=== PATIENT | female | born 1970 | race Caucasian/White ===

== ENCOUNTER → 2016-12-25 | Outpatient (CLI) | payer BC ==
--- NOTE | 2016-12-25 18:27 | CARD ---
APPROVED REPORT EXAM: Two-dimensional and M-mode echocardiogram with Doppler and color Doppler. Other Information Quality : GoodHR: 64bpm Rhythm : NSR INDICATION Ascending Aorta Dilation 2D DIMENSIONS RVDd2.9 (2.9-3.5cm)Left Atrium(2D)3.4 (1.6-4.0cm) IVSd1.0 (0.7-1.1cm)Aortic Root(2D)3.1 (2.0-3.7cm) LVDd4.0 (3.9-5.9cm)LVOT Diameter2.0 (1.8-2.4cm) PWd0.9 (0.7-1.1cm)LVDs3.0 (2.5-4.0cm) FS (%) 25.8 %SV36.2 ml LVEF(%)55.0 (>50%) Aortic Valve AoV Peak Derrick.146.7cm/sAoV VTI31.3cm AO Peak GR.8.6mmHgLVOT Peak Derrick.111.8cm/s LVOT VTI 25.86cmAO Mean GR.5mmHg NOHELIA (VMAX)2.38ce0TQM (VTI)2.63cm2 Mitral Valve MV E Zzweeaqk04.6cm/sMV DECEL [id number] MV A Maystpuh08.4cm/sMV E Mean Gr.2mmHg MV OPF26qvI/A Ratio1.0 MV A Ceeknbvl670gcEMF (PHT)3.41cm2 TDI E/Lateral E'8.2E/Medial E'9.5 Pulmonary Valve PV Peak Rxrmpzcj19.2cm/sPV Peak Grad.2mmHg RVOT VTI14.7cm Tricuspid Valve TR P. Jxfntvym404ti/sRAP KRTIAJBF1hiFz TR Peak Gr.99xcNyBEWX90ftXz Pulmonary Vein S1 Amtrapco89.0cm/sD2 Odtlykak30.5cm/s PVa seonbscb068fdoa LEFT VENTRICLE The left ventricle is normal size. There is normal left ventricular wall thickness. Left ventricle sy stolic function is normal. The Ejection Fraction is 55%. There is normal LV segmental wall motion. Tr ansmitral Doppler flow pattern is Grade I-abnormal relaxation pattern. There is no ventricular septal defect visualized. AORTIC VALVE The aortic valve is mildly calcified but opens well. The aortic valve is trileaflet. Doppler and [place] r Flow revealed no significant aortic regurgitation. There is no significant aortic valvular stenosis . MITRAL VALVE The mitral valve is normal in structure. There is no evidence of mitral valve prolapse. There is no m itral valve stenosis. Doppler and Color Flow revealed trace mitral regurgitation. TRICUSPID VALVE The tricuspid valve is normal in structure. Doppler and Color Flow revealed trace tricuspid regurgita tion. There is no pulmonary hypertension. The PA pressure was estimated at 15 mmHg. PULMONIC VALVE The pulmonary valve is normal in structure and function. Doppler and Color Flow revealed no pulmonic valvular regurgitation. GREAT VESSELS The aortic root is normal in size. The ascending aorta is moderately dilated at 3.9cm. Normal pulmona ry venous flow (Doppler). The IVC is normal in size and collapses >50% with inspiration. PERICARDIAL EFFUSION There is no evidence of significant pericardial effusion. Critical Notification Critical Value: No <Conclusion> Left ventricle systolic function is normal. The Ejection Fraction is 55%. Transmitral Doppler flow pattern is Grade I-abnormal relaxation pattern. The aortic valve is mildly calcified but opens well. The aortic valve is trileaflet. Doppler and Color Flow revealed trace mitral regurgitation. Doppler and Color Flow revealed trace tricuspid regurgitation. There is no pulmonary hypertension. The PA pressure was estimated at 15 mmHg. The pulmonary valve is normal in structure and function. The ascending aorta is moderately dilated at 3.9cm. There is no evidence of significant pericardial effusion.
== END | disposition home or self-care (01) ==
LOC: ECHO 09:12
PROVIDERS: ATTEND Internal Medicine Cardiovascular Disease
DX: I37.1 Nonrheumatic pulmonary valve insufficiency (principal); I77.810 Thoracic aortic ectasia
CPT/HCPCS: 93306

== ENCOUNTER → 2017-12-17 | Outpatient (CLI) | payer BC | END | disposition home or self-care (01) | LOC: ECHO 13:09 | DX: I77.810 Thoracic aortic ectasia (principal); I37.1 Nonrheumatic pulmonary valve insufficiency; E66.9 Obesity, unspecified; R06.02 Shortness of breath; R06.00 Dyspnea, unspecified | CPT/HCPCS: 93306 ==

== ENCOUNTER 2018-02-02 23:30 | Emergency (ER) | payer BC | END 2018-02-03 00:37 | disposition home or self-care (01) | LOC: ER 23:30 | DX: S80.01XA Contusion of right knee, initial encounter (principal); I10 Essential (primary) hypertension; E78.00 Pure hypercholesterolemia, unspecified; Z90.49 Acquired absence of other specified parts of digestive tract; W01.198A Fall on same level from slipping, tripping and stumbling with subsequent striking against other object, initial encounter; Y93.89 Activity, other specified; Y92.89 Other specified places as the place of occurrence of the external cause; Y99.8 Other external cause status | CPT/HCPCS: 73562; 99284 ==

== ENCOUNTER → 2018-05-06 | Outpatient (CLI) | payer BC ==
[~2018-05-06] MED LIST: BUPIVACAINE MPF 0.5% 30 ML VIAL.; methylPREDNISolone ACETATE 40 MG/ML VIAL.
== END | disposition home or self-care (01) ==
LOC: PNCL 09:29
DX: G89.28 Other chronic postprocedural pain (principal); Z90.49 Acquired absence of other specified parts of digestive tract; R10.11 Right upper quadrant pain; I10 Essential (primary) hypertension; M19.90 Unspecified osteoarthritis, unspecified site; Z72.89 Other problems related to lifestyle; Z88.1 Allergy status to other antibiotic agents
CPT/HCPCS: 64450; J1030; J3490

== ENCOUNTER → 2018-05-15 | Outpatient (CLI) | payer BC | END | disposition home or self-care (01) | LOC: MRI 07:56 | DX: M41.86 Other forms of scoliosis, lumbar region (principal); I10 Essential (primary) hypertension; E78.00 Pure hypercholesterolemia, unspecified; E66.9 Obesity, unspecified | CPT/HCPCS: 74181 ==

== ENCOUNTER → 2018-10-16 | Outpatient (CLI) | payer BC ==
[2018-02-02 23:41] VITALS: BP 111/65
[~2018-10-16] MED LIST changes: +AMLO5TAB7 PO; +BACI1TAB3 PO; -BUPIVACAINE MPF 0.5% 30 ML VIAL.; +DICY20TA3 PO; +ESOM20CA PO; +LORA1TAB47 PO; +LOVA20TA2 PO; +METO-247 PO; +VALA500T5 PO; -methylPREDNISolone ACETATE 40 MG/ML VIAL.
--- NOTE | 2018-10-16 15:56 | CARD ---
MR#: [id number] Date of Study: 10/16/2018 Ordering Physician: FARHEEN GARCIA, Referring Physician: FARHEEN GARCIA Tech: Roxana Crawford RDCS APPROVED REPORT EXAM: Two-dimensional and M-mode echocardiogram with Doppler and color Doppler. Other Information Quality : Good INDICATION Ascending Aorta Dilatation 2D DIMENSIONS RVDd2.2 (2.9-3.5cm)Left Atrium(2D)3.0 (1.6-4.0cm) IVSd0.8 (0.7-1.1cm)Aortic Root(2D)2.8 (2.0-3.7cm) LVDd4.3 (3.9-5.9cm)LVOT Diameter2.1 (1.8-2.4cm) PWd0.8 (0.7-1.1cm)LVDs2.7 (2.5-4.0cm) FS (%) 30.0 %SV57.9 ml LVEF(%)60.0 (>50%) Aortic Valve AoV Peak Derrick.140.6cm/sAoV VTI29.2cm AO Peak GR.7.9mmHgLVOT Peak Derrick.96.8cm/s LVOT VTI 20.62cmAO Mean GR.4mmHg NOHELIA (VMAX)2.74nm4YSR (VTI)2.36cm2 Mitral Valve MV E Sapurojz08.5cm/sMV DECEL VRCS515ue MV A Mnizovmn38.9cm/sMV ERG70is E/A Ratio0.9MVA (PHT)3.95cm2 TDI E/Lateral E'6.3E/Medial E'12.2 Pulmonary Vein S1 Tzzrmlzs46.6cm/sD2 Ylzsltji70.5cm/s LEFT VENTRICLE The left ventricle is normal size. There is normal left ventricular wall thickness. The left ventricu lar systolic function is normal. The Ejection Fraction is 55-60%. There is normal LV segmental wall m otion. RIGHT VENTRICLE The right ventricle is normal size. The right ventricular systolic function is normal. ATRIA The left atrium size is normal. The right atrium size is normal. The interatrial septum is intact wit h no evidence for an atrial septal defect or patent foramen ovale as noted on 2-D or Doppler imaging. AORTIC VALVE The aortic valve is calcified but opens well. Doppler and Color Flow revealed trace aortic regurgitat ion. There is no significant aortic valvular stenosis. MITRAL VALVE The mitral valve is calcified but opens well. Mitral annular calcification is mild. There is no evide nce of mitral valve prolapse. There is no mitral valve stenosis. Doppler and Color-flow revealed trac e mitral regurgitation. TRICUSPID VALVE The tricuspid valve is normal in structure and function. Doppler and Color Flow revealed no tricuspid valve regurgitation noted. There is no tricuspid valve stenosis. PULMONIC VALVE The pulmonic valve is not well visualized. Doppler and Color Flow revealed trace pulmonic valvular re gurgitation. There is no pulmonic valvular stenosis. GREAT VESSELS The aortic root is normal in size. The ascending aorta is mildly dilated at 3.6 cm. The IVC is normal in size and collapses >50% with inspiration. PERICARDIAL EFFUSION There is no evidence of significant pericardial effusion. Critical Notification Critical Value: No <Conclusion> The left ventricular systolic function is normal. The Ejection Fraction is 55-60%. There is normal LV segmental wall motion. Trace aortic regurgitation. Trace mitral regurgitation. The ascending aorta is mildly dilated at 3.6 cm. There is no evidence of significant pericardial effusion. Signed by : Jhony Shen, Electronically Approved : 10/16/2018 15:55:16
== END | disposition home or self-care (01) ==
LOC: ECHO 12:49
PROVIDERS: ATTEND Internal Medicine Cardiovascular Disease
DX: I77.810 Thoracic aortic ectasia (principal)
CPT/HCPCS: 93306

== ENCOUNTER → 2018-12-16 | Outpatient (CLI) | payer BC ==
[2018-02-02 23:41] VITALS: BP 111/65
[~2018-12-16] MED LIST changes: +AMLO5TAB10 PO; -AMLO5TAB7 PO
--- NOTE | 2018-12-16 16:31 | KCIC ---
MR of the anterior chest HISTORY: Left sided substernal pain and tenderness for 8 weeks. TECHNIQUE: Routine multiplanar sequences are obtained. Scan is centered at the sternum. FINDINGS: There is a small subcutaneous soft tissue nodule in the medial posterior breast just anterior to the sternum, measures 15 mm diameter. This may represent a sebaceous or epidermoid inclusion cyst. The sternum demonstrates intact marrow signal. No abnormal soft tissue edema or fluid collection around the sternum. Preservation of mediastinal fat posterior to the sternum. The sternoclavicular joints appear symmetric bilaterally without fluid or swelling. IMPRESSION: 1. There is a small subcutaneous lesion at the posterior medial left breast, would most commonly represent a sebaceous or epidermoid inclusion cyst. 2. No acute bone or soft tissue abnormality is identified about the sternum. Electronically signed by: Jose Alonso MD (12/16/2018 4:28 PM) [facility]
== END | disposition home or self-care (01) ==
LOC: KCIC MRI 12:56
PROVIDERS: ATTEND Nurse Practitioner Family
DX: N64.89 Other specified disorders of breast (principal)
CPT/HCPCS: 71550

== ENCOUNTER 2019-10-27 13:48 | Emergency (ER) | payer BC ==
[~2019-10-27] VITALS: Ht 172.7 cm; Wt 90.7 kg
[2019-10-27 15:02] VITALS: BP 156/74
[2019-10-27] MEDS ORDERED: LIDOCAINE 1% PF 2 ML VIAL. INJ ONE (15:30)
[2019-10-27] MEDS ORDERED: cefTRIAXone IM 1 GM VIAL IM ONE (15:30)
--- NOTE | 2019-10-27 15:45 | PHYS DOC ---
Past Medical History Past Medical History: High Cholesterol, Hypertension (AUGUSTINA TORRES APRN) Past Surgical History: Cholecystectomy (AUGUSTINA TORRES APRN) Alcohol Use: Occasionally Drug Use: None (AUGUSTINA TORRES APRN) Adult General Chief Complaint Chief Complaint: MEDICATION REFILL [facility] HPI Patient is a 49 year old Female with history of urinary tract infections who presents to the ED today reporting she was diagnosed with UTI couple days ago, she reports her urine culture done by the PRODUCTION ENGINE REPAIRER shows she is resistant to all PO antibiotics and needs IV antibiotics. She reports left flank pain. Denies any fever, abd pain, n/v or abdominal pain. (AUGUSTINA TORRES APRN) Review of Systems Review of Systems Constitutional: Denies fever or chills [] Eyes: Denies change in visual acuity, redness, or eye pain [] HENT: Denies nasal congestion or sore throat [] Respiratory: Denies cough or shortness of breath [] Cardiovascular: No additional information not addressed in HPI [] GI: Denies abdominal pain, nausea, vomiting, bloody stools or diarrhea [] : Reports left flank pain and complicated UTI. Denies dysuria or hematuria [] Musculoskeletal: Denies back pain or joint pain [] Integument: Denies rash or skin lesions [] Neurologic: Denies headache, focal weakness or sensory changes [] Endocrine: Denies polyuria or polydipsia [] All other systems were reviewed and found to be within normal limits, except as documented in this note. (AUGUSTINA TORRES APRN) Current Medications Current Medications Current Medications Medications (Trade) Dose Ordered Sig/Dustin Start Time Stop Time Status Last Admin Dose Admin Ceftriaxone Sodium (Rocephin Im) 1 gm 1X ONCE 10/27/19 15:30 10/27/19 15:31 DC 10/27/19 15:34 1 GM Lidocaine HCl (Xylocaine-Mpf 1% 2ml Vial) 2 ml 1X ONCE 10/27/19 15:30 10/27/19 15:31 DC 10/27/19 15:36 2 ML (CHIP SANTOYO DO) Allergies Allergies Allergies Coded Allergies Type Severity Reaction Last Updated Verified clarithromycin Allergy Intermediate Diarrhea 05/06/18 Yes erythromycin base Allergy Intermediate Diarrhea 05/06/18 Yes metronidazole Allergy Intermediate lethargy 05/06/18 Yes (CHIP SANTOYO DO) Physical Exam Physical Exam Constitutional: Well developed, well nourished, no acute distress, non-toxic appearance. [] HENT: Normocephalic, atraumatic, bilateral external ears normal, oropharynx moist, no oral exudates, nose normal. [] Eyes: PERRLA, EOMI, conjunctiva normal, no discharge. [] Neck: Normal range of motion, no tenderness, supple, no stridor. [] Cardiovascular:Heart rate regular rhythm, no murmur [] Lungs & Thorax: Bilateral breath sounds clear to auscultation [] Abdomen: Bowel sounds normal, soft, no tenderness, no masses, no pulsatile masses. [] Skin: Warm, dry, no erythema, no rash. [] Back: No tenderness, no CVA tenderness. [] Extremities: No tenderness, no cyanosis, no clubbing, ROM intact, no edema. [] Neurologic: Alert and oriented X 3, normal motor function, normal sensory function, no focal deficits noted. [] Psychologic: Affect normal, judgement normal, mood normal. [] (AUGUSTINA TORRES APRN) Current Patient Data Vital Signs Vital Signs Date Time Temp Pulse Resp B/P (MAP) Pulse Ox O2 Delivery O2 Flow Rate FiO2 10/27/19 15:02 98.5 80 18 156/74 (101) 96 Room Air 98.5 (CHIP SANTOYO DO) EKG EKG [] (AUGUSTINA TORRES APRN) Radiology/Procedures Radiology/Procedures [] (AUGUSTINA TORRES APRN) Course & Med Decision Making Course & Med Decision Making Pertinent Labs and Imaging studies reviewed. (See chart for details) This is a 49-year-old female patient presenting to the ED today after having a UA done as an outpatient and be told she is resistant to all by mouth antibiotics and susceptible to very few IV antibiotics. Patient was offered admission, she refused. She was given a shot of Rocephin. She reports she has a prescription for minocycline to be picked tomorrow because the pharmacy did not have the medicine today. She called the urologist and was instructed to follow-up with infectious disease. She does not appear septic. (AUGUSTINA TORRES APRN) Dragon Disclaimer Dragon Disclaimer This electronic medical record was generated, in whole or in part, using a voice recognition dictation system. (AUGUSTINA TORRES APRN) Departure Departure Impression: Primary Impression: Complicated urinary tract infection Disposition: HOME, SELF-CARE Condition: STABLE Referrals: DREA DICKERSON MD (PCP) follow up with your urologist as soon as you can Patient Instructions: Urinary Tract Infection Additional Instructions: Ensure you get the medicine your doctor ordered and start taking right away Come back to the ED any time your symptoms worsen. Attending Signature Attending Signature I have reviewed the PA/LIVESTOCK TRADER's note and plan of care. I was available for consultation as needed during the patient's visit in the emergency department. I agree with the clinical impression, plan, and disposition. (CHIP SANTOYO DO) AUGUSTINA TORRES APRN Oct 27, 2019 15:45 CHIP SANTOYO DO Oct 28, 2019 06:20
== END 2019-10-27 15:55 | disposition home or self-care (01) ==
LOC: ER 13:48
DX: N39.0 Urinary tract infection, site not specified (principal); E78.00 Pure hypercholesterolemia, unspecified; I10 Essential (primary) hypertension; Z90.49 Acquired absence of other specified parts of digestive tract; Z88.1 Allergy status to other antibiotic agents
CPT/HCPCS: 96372; 99284; J0696

== ENCOUNTER → 2019-11-18 | Outpatient (CLI) | payer BC ==
[2019-10-27 15:02] VITALS: BP 156/74
--- NOTE | 2019-11-18 16:19 | CARD ---
MR#: [id number] Date of Study: 11/18/2019 Ordering Physician: ANA HAMMOND, Referring Physician: ANA HAMMOND, Tech: Trinity Pike APPROVED REPORT EXAM: Two-dimensional and M-mode echocardiogram with Doppler and color Doppler. Other Information Quality : AverageHR: 76bpm INDICATION Aortic Valve Disease Aortic Aneurysm RISK FACTORS Hypertension Hyperlipidemia 2D DIMENSIONS RVDd2.9 (2.9-3.5cm)Left Atrium(2D)3.3 (1.6-4.0cm) IVSd1.0 (0.7-1.1cm)Aortic Root(2D)3.2 (2.0-3.7cm) LVDd4.1 (3.9-5.9cm)LVOT Diameter2.0 (1.8-2.4cm) PWd1.1 (0.7-1.1cm)LVDs2.5 (2.5-4.0cm) FS (%) 37.9 %SV50.0 ml LVEF(%)68.6 (>50%) Aortic Valve AoV Peak Derrick.136.5cm/sAoV VTI30.7cm AO Peak GR.7.5mmHgLVOT Peak Derrick.67.5cm/s LVOT VTI 15.55cmAO Mean GR.4mmHg NOHELIA (VMAX)1.78bd5KUM (VTI)1.61cm2 Mitral Valve MV E Fnjabefm56.4cm/sMV DECEL RDGP390xm MV A Ejqttbyi40.1cm/sMV E Mean Gr.2mmHg MV GGF86wzJ/A Ratio1.1 MVA (PHT)4.16cm2 TDI E/Lateral E'5.1E/Medial E'6.1 Pulmonary Valve PV Peak Hnmegblm68.6cm/sPV Peak Grad.4mmHg Tricuspid Valve TR P. Vbhloxhm996el/sRAP TNQNEWKA0ryUe TR Peak Gr.62gcZgFKPZ71zoSn Pulmonary Vein S1 Lqyyswhb38.1cm/sD2 Irfxqwld21.7cm/s PVa thjnntam355drvw LEFT VENTRICLE The left ventricle is normal size. There is borderline concentric left ventricular hypertrophy. The l eft ventricular systolic function is normal. The Ejection Fraction is 55-60%. There is normal LV segm ental wall motion. RIGHT VENTRICLE The right ventricle is normal size. There is normal right ventricular wall thickness. The right ventr icular systolic function is normal. ATRIA The left atrium size is normal. The right atrium size is normal. The interatrial septum is intact wit h no evidence for an atrial septal defect or patent foramen ovale as noted on 2-D or Doppler imaging. AORTIC VALVE The aortic valve is thickened but opens well. Doppler and Color Flow revealed no significant aortic r egurgitation. There is no significant aortic valvular stenosis. MITRAL VALVE The mitral valve is thickened but opens well. There is no evidence of mitral valve prolapse. There is no mitral valve stenosis. Doppler and Color-flow revealed trace mitral regurgitation. TRICUSPID VALVE The tricuspid valve is normal in structure and function. Doppler and Color Flow revealed trace tricus pid regurgitation with an estimated PAP of 34 mmHg. There is no tricuspid valve stenosis. PULMONIC VALVE The pulmonic valve is not well visualized. Doppler and Color Flow revealed trace pulmonic valvular re gurgitation. GREAT VESSELS The aortic root is normal in size. The ascending aorta is Mildly dilated. The IVC is normal in size a nd collapses >50% with inspiration. PERICARDIAL EFFUSION There is no evidence of significant pericardial effusion. Critical Notification Critical Value: No <Conclusion> The left ventricular systolic function is normal. The Ejection Fraction is 55-60%. There is normal LV segmental wall motion. Trace mitral regurgitation. Trace tricuspid regurgitation with an estimated PAP of 34 mmHg. There is no evidence of significant pericardial effusion. Signed by : Jhony Shen, Electronically Approved : 11/18/2019 16:18:37
== END | disposition home or self-care (01) ==
LOC: ECHO 13:48
PROVIDERS: ATTEND Student in an Organized Health Care Education/Training Program
DX: I08.0 Rheumatic disorders of both mitral and aortic valves (principal); I71.9 Aortic aneurysm of unspecified site, without rupture
CPT/HCPCS: 93306

== ENCOUNTER → 2020-12-21 | Outpatient (CLI) | payer BC ==
[~2020-12-21] MED LIST changes: +AMLO-186 PO; -AMLO5TAB10 PO; +CONTRAST GIVEN. MC PRN; +IOHEXOL 350 MG/ML 100 ML VIAL. IV ONE
--- NOTE | 2020-12-21 15:07 | RAD ---
EXAM: CT Chest with and without IV contrast INDICATION: Reason: AORTIC ANEURYSM WITHOUT RUPTURE / Spl. Instructions: IV OMNI 350 90 MLS / History : TECHNIQUE: Multi-detector row CT images were acquired from the thoracic inlet through the upper abdo men with and without the use of IV contrast. 3-D VRT images were acquired and reviewed. Sagittal and coronal images were acquired from the transaxial data. All CT scans performed at this facility utiliz e dose optimization techniques as appropriate to the exam, including the following: Automated exposur e control and adjustment of the mA and/or KV according to patient size (this includes techniques or s tandardized protocols for targeted exams where dose is indication/reason for exam). IV CONTRAST: Administered COMPARISON: None FINDINGS: CARDIOVASCULAR: Heart is normal in size and shows dense calcifications along the main, LAD and obtuse marginal arteri es. Precontrast images show no aortic intramural hematoma. At the aortic root, aorta measures 3.8 cm. In the proximal ascending aorta, it measures 4.3 cm. At the aortic arch, it measures 2.9 cm. There is a two-vessel aortic arch with a common origin of the innominate and left common carotid chris drew. All supraaortic great vessels are widely patent. At the proximal descending aorta, it measures 2.2 cm. At the mid descending aorta, it measures 2.2 cm and at the hiatus, it measures 1.9 cm. MEDIASTINUM & GAURI: No adenopathy or masses. LUNGS: No pulmonary infiltrate, nodule, or other focal abnormality. PLEURAL SPACE: No pleural effusions or pneumothorax. OSSEOUS & SOFT TISSUE: Unremarkable ABDOMEN: Included upper abdomen shows cholecystectomy clips. Mild left renal cortical scarring. 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 IMPRESSION: Ascending thoracic aortic ectasia to 4.3 cm. No evidence of dissection or flow limiting stenosis. Electronically signed by: Ray Heaton MD (12/21/2020 3:04 PM) [id number]
== END ==
LOC: CT 08:29
PROVIDERS: ATTEND Student in an Organized Health Care Education/Training Program
DX: I77.810 Thoracic aortic ectasia (principal); Z90.49 Acquired absence of other specified parts of digestive tract
CPT/HCPCS: 71275; Q9967